=== PATIENT | male | born 1940 | race American Indian/Alaskan Native ===

== ENCOUNTER 2017-01-10 08:35 | Day surgery (SDC) | payer MEDICARE, BC ==
[2016-01-05 11:36] VITALS: BMI 21.1
[2017-01-10 10:11] LABS: BLOOD UREA NITROGEN 14 mg/dL (9-20); CALCIUM 8.6 mg/dl (8.6-10.4); CARBON DIOXIDE 26 mmol/L (22-30); CHLORIDE 102 mmol/L (98-107); GFR AFRICAN-AMERICAN > 60; GLUCOSE,RANDOM 96 mg/dL (75-110); POTASSIUM 4.3 mmol/L (3.6-5.2); SODIUM 135 mmol/L (132-148)
[2017-01-10] MEDS ORDERED: Lactated Ringer's 1,000 ML IV ONE ×2 (11:15→12:20)
[2017-01-10] MEDS ORDERED: Iohexol 240 (50 ml) ONE (11:17)
[2017-01-10] MEDS ORDERED: cefTRIAXone IV 1 gm in Dextros 50 ML IVPB ONE (11:17)
[2017-01-10] MEDS ORDERED: Midazolam 2 MG/2 ML VIAL ONE (11:20)
[2017-01-10] MEDS ORDERED: Propofol 10 mg/ml Inj (20 ML) ONE (11:20)
--- NOTE | 2017-01-10 12:28 | PCM.SURG1 ---
Surgeon's Initial Post Op Note - Surgeon's Notes Surgeon: christopher cedillo Principal Mechanical Engineer: none Type of Anesthesia: General LMA Pre-Operative Diagnosis: bladder tumor. urethral tumor. poor stream Operative Findings: urethral stricture. bladder tumor Post-Operative Diagnosis: same Operation Performed: cysto, optical internal urethrotomy. urethral bx's. bilat rtg pyelogram. bladder bx's and fulg Specimen/Specimens Removed: urine. urethral bx. bladder bx Estimated Blood Loss: EBL {In ML}: 5 Blood Products Given: N/A Post-Op Condition: Good Date of Surgery/Procedure: 01/10/17 Time of Surgery/Procedure: 12:28
--- NOTE | 2017-01-10 12:33 | RAD ---
PROCEDURE: Intraoperative Fluoroscopy. HISTORY: BLADDER TUMOR, URETERAL TUMOR FINDINGS: Fluoroscopic assistance was provided. 12.9 seconds fluoroscopy time utilized for this procedure. . Radiation dose = 0.51355 mGy-cm. Please refer to the operative report from Dr. HOPPER, [place].
[2017-01-10] MEDS ORDERED: Labetalol 25mg/5ml Syringe IVP PRN (12:35)
[2017-01-10 14:01] VITALS: RESP 15
[2017-01-10 14:37] VITALS: BP 167/83; PULSE 55; TEMP 97.8; O2SAT 98
--- NOTE | 2017-01-10 17:19 | RAD ---
HISTORY: BLADDER TUMOR,URETERAL TUMOR COMPARISON: No prior. FINDINGS: BOWEL: Large amount of stool seen throughout the colon consistent with fecal retention/ constipation. BONES: Multilevel bilateral laminectomy changes seen at the L4-L5 and L5-S1 levels. . Short-segment bilateral Martinez rods are attached to the L4, L5 and S1 segments. . There is slight levoscoliosis centered at the L3-L4 level. OTHER FINDINGS: Additionally, there are bilateral iliac endovascular stents. Small calcifications overlying the inferior true pelvis. IMPRESSION: Constipation. Postoperative changes lumbar spine. In situ bilateral iliac endovascular stents.
--- NOTE | 2017-01-12 20:06 | OP ---
PROCEDURE DATE: 01/10/2017 PREOPERATIVE DIAGNOSES: 1. Poor urinary stream. 2. History of urethral carcinoma. 3. History of bladder carcinoma. POSTOPERATIVE DIAGNOSES: 1. Poor urinary stream. 2. History of urethral carcinoma. 3. History of bladder carcinoma. 4. Urethral stricture. 5. Prostatic enlargement. 6. Bladder tumor. PROCEDURES: 1. Cystoscopy. 2. Optical internal urethrotomy. 3. Urethral biopsy and fulguration. 4. Bladder biopsies and fulguration. 5. Bilateral retrograde ureteral pyelogram. Procedures performed under fluoroscopic control as well as video endoscopic control. DESCRIPTION OF PROCEDURE: The patient was placed in lithotomy position. Perioperative antibiotics were administered. Genitalia prepped and draped sterilely. Anesthesia was provided by the anesthesiologist. A 22-Omani cystoscope sheath was introduced under direct vision. There was noted to be a stricture in the lto-im-tgupar penile urethra. The ureteral guidewire was able to be passed through the stricture. An open-end catheter was inserted over the guidewire. Attempted passage of the cystoscope sheath over the catheter was made. However, the catheter could not be passed through the dense stricture. Optical internal urethrotomy was performed. A 20-Omani cystoscope sheath was introduced adjacent to the catheter. The incision of the stricture was performed. The stricture opened well. There were no papillary lesions within the urethral stricture. There was abnormal tissue, which was white and friable. Multiple biopsies of this tissue was performed with cold cup biopsy forceps. The cystoscope was advanced to the bladder. Urethra, prostate, and bladder were inspected. FINDINGS: There was a papillary bladder tumor on the anterior wall. In addition, there was an area of abnormal mucosa on the anterior wall, which had a somewhat healing appearance with shaggy white mucosa. These areas were subsequently biopsied and fulgurated. The ureteral orifices were identified. Retrograde ureteral pyelogram was performed. Iodinated contrast dye was instilled into each ureteral orifice via a cone-tip catheter. The ureters and kidneys were viewed sequentially. There was no evidence of filling defect or obstruction within the ureters or collecting systems. Post drainage fluoroscopic views confirmed the above findings. The bladder was inspected with 70 degree lens as well. The abnormal mucosa of the bladder on the anterior wall was biopsied. Multiple biopsies were obtained. Fulguration was performed with ball electrode and electrocautery for tumor control as well as hemostasis. The bladder was drained. Cystoscope sheath was removed. An 18-Omani [place] catheter was inserted over the ureteral catheter which served as a guide to allow to enter the bladder without difficulty. Upon removal of cystoscope sheath, there was noted to be no bleeding from the optical internal urethrotomy. There were no other mucosal lesions within the urethra. Bladder drainage was clear. Rectal examination was performed. There was no abnormal pelvic mass, fixation, or induration. Prostate was supple and smooth, approximately 25-30 g in size. The patient tolerated the procedure without complication. Jackie Richardson MD
== END 2017-01-10 18:49 | disposition home or self-care (01) ==
LOC: C.SDS 08:35
PROVIDERS: ATTEND Urology
DX: C67.3 Malignant neoplasm of anterior wall of bladder (principal); N35.9 Urethral stricture, unspecified; N40.1 Benign prostatic hyperplasia with lower urinary tract symptoms; R39.12 Poor urinary stream; Z85.59 Personal history of malignant neoplasm of other urinary tract organ; I10 Essential (primary) hypertension; I73.9 Peripheral vascular disease, unspecified
CPT/HCPCS: 36415; 52005; 52204; 52276; 74000; 80048; 85610; 85730; 87086; 87181; 88104; 88305; C1758; C1769; J0696; J1885; J7120